=== PATIENT | female | born 1950 | race Caucasian/White ===

== ENCOUNTER → 2016-06-10 | Outpatient (CLI) | payer BC ==
[2016-06-10 15:30] LABS: BASOPHILS # (AUTO) 0.05 10*3/UL; BASOPHILS % (AUTO) 0.7 % (0-1); EOSINOPHILS # (AUTO) 0.14 10*3/UL; HEMATOCRIT 40.8 % (37.0-47.0); HEMOGLOBIN 13.5 g/dL (12.0-16.0); LYMPHOCYTES # (AUTO) 1.61 10*3/uL; MEAN CORPUSCULAR HEMOGLOBIN 30.5 PG (27-31); MEAN CORPUSCULAR HGB CONC 33.1 g/dL (33-37); MEAN PLATELET VOLUME 10.4 FL (7.4-12.2); MONOCYTES # (AUTO) 0.42 10*3/UL (0.3-0.8); MONOCYTES % (AUTO) 5.9 % (5-15); NEUTROPHILS # (AUTO) 4.84 10*3/UL; NEUTROPHILS % (AUTO) 68.5 % (50-80); RED BLOOD COUNT 4.43 10^6/uL (4.20-5.40)
[2016-06-10 15:37] LABS: BILIRUBIN,URINE NEGATIVE (NEG); CLARITY,URINE CLEAR (CLEAR); COLOR,URINE YELLOW; GLUCOSE, URINE (UA) NEGATIVE (NEG); NITRATE,URINE NEGATIVE (NEG); OCCULT BLOOD,URINE Trace-intact (NEG); PH,URINE 5.5 (5.0-8.5); PROTEIN,URINE NEGATIVE (NEG); UROBILINOGEN,URINE 0.2 mg/dL (0.2)
[2016-06-10 15:40] LABS: RBC,URINE 0-3 /hpf; URINE SAMPLE TYPE VOIDED SPECIMEN
[2016-06-10 15:46] LABS: BLOOD UREA NITROGEN 20 mg/dL (7-22); CALCIUM 9.9 mg/dL (8.7-10.7); EST GLOMERULAR FILTRATION > 60 (>60 ml/min/1.73m(2)); SERUM ALBUMIN 4.4 g/dL (3.5-4.8)
[2016-06-10 15:51] LABS: CREATININE, URINE 26.5 MG/DL (15-500)
[2016-06-10 16:08] LABS: PLATELET MORPHOLOGY COMMENT NORMAL MORPHOLOGY (NORM); WBC MORPHOLOGY COMMENT NORMAL MORPHOLOGY (NORM)
[2016-06-10 16:11] LABS: RBC MORPHOLOGY COMMENT NORMAL MORPHOLOGY (NORM)
[2016-06-10 16:49] LABS: CHOL/HDL RATIO 3.4 RATIO (0-4.0); LDL CHOLESTEROL,CALCULATED 72.8 mg/dL
[2016-06-10 18:11] LABS: FREE T4 (FREE THYROXINE) 0.81 ng/dL (0.93-1.71)
== END ==
LOC: MOB LAB 13:45
DX: E11.9 Type 2 diabetes mellitus without complications (principal); I10 Essential (primary) hypertension; E78.5 Hyperlipidemia, unspecified; I25.10 Atherosclerotic heart disease of native coronary artery without angina pectoris; E55.9 Vitamin D deficiency, unspecified
CPT/HCPCS: 36415; 80053; 80061; 81001; 82043; 82306; 83036; 84439; 84443; 85025

== ENCOUNTER → 2016-11-18 | Outpatient (CLI) | payer BC ==
[2016-11-18 15:24] LABS: HEMOGLOBIN A1C 6.47 % (4.2-6.0)
--- NOTE | 2016-11-18 16:16 | EKG ---
[address] [place] [id number] Measurements Intervals [place] Rate: 60 P: 61 ID: [id number] QRS: 65 QRSD: 112 T: 79 QT: 435 QTc: 435 Interpretive Statements SINUS RHYTHM WITH FREQUENT VENTRICULAR PREMATURE COMPLEXES IN A BIGEMINAL PATTERN POSSIBLE INFERIOR MYOCARDIAL INFARCTION [30 ms Q WAVE IN II/aVF], PROBABLY OLD WITH POSTERIOR EXTENSION [PROMINENT R WAVE IN V1 ABNORMAL RHYTHM ECG Compared to ECG 03/26/2014 08:10:18 Myocardial infarct finding now present Sinus bradycardia no longer present Indeterminate axis no longer present T-wave abnormality no longer present Possible ischemia no longer present Electronically Signed On 11-19-16 10:55:04 MDT by Jean Arceo MD [email or web address]
[2016-11-18 18:16] LABS: FREE T4 (FREE THYROXINE) 0.92 ng/dL (0.93-1.71)
== END ==
LOC: MOB LAB 14:03
DX: E11.9 Type 2 diabetes mellitus without complications (principal); R00.1 Bradycardia, unspecified; E03.9 Hypothyroidism, unspecified; Z72.0 Tobacco use
CPT/HCPCS: 36415; 83036; 84439; 84443; 84481; 93005; 93010